=== PATIENT | male | born 1965 | race Two or more races ===

== ENCOUNTER 2024-05-13 05:00 | Day surgery (SDC) | payer OTHER ==
[2024-05-03 12:26] VITALS: BP 131/77
[~2024-05-13] VITALS: Ht 180.3 cm; Wt 90.7 kg
[~2024-05-13 05:00] MED LIST: ANIMAL CHEWS1 EACH PO
[2024-05-13] MEDS ORDERED: CEFTRIAXONE SODIUM 2,000 MG VIAL ONE (07:14)
[2024-05-13] MEDS ORDERED: METRONIDAZOLE/SODIUM CHLORIDE 500 MG/100 ML PIGGYBACK IV ONE (07:14)
[2024-05-13] MEDS ORDERED: BUPIVACAINE HCL/MPF 0.5% 30ML VIAL ONE (07:20)
[2024-05-13] MEDS ORDERED: POVIDONE-IODINE 118 ML BOTT TOP ONE (07:20)
[2024-05-13] MEDS ORDERED: DIBUCAINE 30 GM TUBE ONE (07:20)
[2024-05-13] MEDS ORDERED: HEMOSTATIC MATRIX 1 KIT KIT TOP ONE (07:20)
[2024-05-13] MEDS ORDERED: LIDOCAINE HCL 1%/EPINEPHRINE 20ML VIAL IJ ONE (07:20)
[2024-05-13] MEDS ORDERED: PERCOCET 5-3251 EACH PO (08:43)
[2024-05-13] MEDS ORDERED: TAMS0.4C PO (08:43)
[2024-05-13] MEDS ORDERED: RECTICARE30 GM TOP (08:43)
== END 2024-05-13 15:00 | disposition home or self-care (01) ==
LOC: CIR.AMB 05:00
PROVIDERS: ATTEND Surgery
DX: K64.3 Fourth degree hemorrhoids (principal); K64.4 Residual hemorrhoidal skin tags